=== PATIENT | female | born 1985 | race Two or more races ===

== ENCOUNTER 2021-03-19 08:03 | Emergency (ER) | payer OTHER, SELFPAY ==
[2021-03-19 08:19] VITALS: BP 133/65; PULSE 66; RESP 18; TEMP 36.3; O2SAT 100; BMI 29.2
[2021-03-19 09:06] LABS: IDNOW Serial# 08D9AD1C
--- NOTE | 2021-03-19 09:06 | ED.GENADULT ---
HPI - General Adult General Chief complaint: General Medical Stated complaint: HEADACHE SORE THROAT Time Seen by Provider: 03/19/21 09:06 Source: patient Mode of arrival: ambulatory History of Present Illness HPI narrative: 35-year-old female with no significant past medical history presenting to the ED complaining of sore throat, myalgias, headache, dry cough, fatigue since yesterday. Denies fever, chills, CP/SOB, LE edema, recent travel, sick contacts Onset (ago): day(s) Related Data Previous Rx's Medication Instructions Recorded acetaminophen 500 mg tablet 500 mg PO Q6H PRN #20 tab 03/19/21 (Tylenol Extra Strength) benzonatate 200 mg capsule 200 mg PO TID PRN #20 cap 03/19/21 fluticasone propionate 50 2 spray INTRANASAL DAILY #16 g 03/19/21 mcg/actuation nasal spray,suspension (Flonase Allergy Relief) Allergies Allergy/AdvReac Type Severity Reaction Status Date / Time No Known Allergies Allergy Verified 03/19/21 08:20 Review of Systems Review of Systems: Constitutional: No Fever, No Chills, +fatigue ENT/Mouth: No Ear Pain, + Nasal Congestion, No Sinus Pain, + sore throat, + Rhinorrhea, No Swallowing Difficulty Cardiovascular: No Chest Pain, No SOB Respiratory: + Cough, No Sputum, No Wheezing Gastrointestinal: No Nausea, No Vomiting, No Diarrhea, No Constipation, No Abdominal pain Genitourinary: No Hematuria, No Urgency, No Flank Pain Musculoskeletal: No joint pain, + Myalgias, No Joint Swelling Skin: No Skin Lesions, No rash Neuro: No Weakness, No Numbness, No Paresthesias Yes all other systems are reviewed and are negative [facility] Past Medical History Attestation statement: The following information was validated with the patient. Social History Social History Advance Directives: No Advance Directives Information Provided: Yes Physical Exam Vital Signs: Vital Signs: Last Vital Signs Temp 97.4 F 03/19/21 08:19 Pulse 66 03/19/21 08:19 Resp 18 03/19/21 08:19 BP 133/65 03/19/21 08:19 Pulse Ox 100 03/19/21 08:19 Body Mass Index 29.2 Const: General: cooperative, healthy appearing and no acute distress Orientation/consciousness: patient oriented x3 Limitations: no limitations HENMT: Head: Yes normal to inspection Ears: hearing grossly normal bilaterally, external ears normal, TM's normal bilaterally and mastoids normal General nose exam: Normal external nose present Face and sinus: Yes normal facial exam Throat: Yes posterior oropharynx normal, Yes tonsils normal, Yes uvula midline, No peritonsillar mass and No uvular edema Eyes: General: appearance normal, both eyes and all related structures EOM: EOMs intact bilaterally Neck: Neck: Yes normal visual inspection, Yes no lymphadenopathy and Yes no meningeal signs Resp: Effort & Inspection: normal respiratory effort Auscultation: clear to auscultation bilaterally, no rales, no rhonchi and no wheezes Cardio: Rate: regular rate Heart sounds: S1 normal heart sound present and S2 normal heart sound present Skin: Rashes: no rashes Wounds: no wounds Neuro: General: patient oriented x3 and no meningeal signs Gait exam (Neuro): Normal gait present Extrem: General: Yes normal to inspection, Yes no pedal edema and Yes no calf tenderness Course Course Course Narrative: COVID-19 negative, rapid strep negative Medical Decision Making [facility] Narrative Medical decision making narrative: 35-year-old female with no significant past medical history presenting to the ED complaining of sore throat, myalgias, headache, dry cough, fatigue since yesterday. On exam vital signs stable, NAD/well-appearing, lungs CTA, no pedal edema, TM/oropharynx WNL. Concern for viral syndrome/COVID-19. Low concern for pneumonia/PE/ACS Plan: Rapid strep, COVID-19 testing Medical Records Medical records reviewed: Yes I reviewed the patient's medical records. Lab Data Lab results reviewed: Yes I reviewed the patient's lab results. Labs: Lab Results 03/19/21 03/19/21 Range/Units 08:41 08:41 COVID-19 (PHIL) Negative (Negative) COVID-19 Clin Com See Note S. pyogenes GrpA VALERIE Negative (Negative) Discharge Plan Discharge Clinical Impression: Acute viral syndrome Patient Disposition: Home, Self-Care Instructions: Viral Syndrome (ED) Additional Instructions: You tested negative for COVID-19 and strep throat Tessalon Perles for cough, take as needed Flonase is for nasal decongestion stay hydrated follow-up with her doctor If symptoms persist or worsen, develop constant worsening cough, shortness breath, chest pain, or fever unresolved medications return to the ED Prescriptions: New benzonatate 200 mg capsule 200 mg PO TID PRN (Reason: cough) Qty: 20 RF: 0 acetaminophen [Tylenol Extra Strength] 500 mg tablet 500 mg PO Q6H PRN (Reason: pain or fever) Qty: 20 RF: 0 fluticasone propionate [Flonase Allergy Relief] 50 mcg/actuation spray,suspension 2 spray intranasal DAILY Qty: 16 RF: 0 Referrals: Physician,Unknown J [Primary Care Provider] - 2 days Stand Alone Forms: Work/School Release
[2021-03-19 09:07] LABS: Strep A Nucleic Acid Negative (Negative)
[2021-03-19 09:18] LABS: COVID-19 Test Negative (Negative)
== END 2021-03-19 09:34 | disposition home or self-care (01) ==
PROVIDERS: Emergency Provider Emergency Medicine Emergency Medical Services
DX: B34.9 Viral infection, unspecified (principal); Z20.822 Contact with and (suspected) exposure to COVID-19; R51.9 Headache, unspecified; J02.9 Acute pharyngitis, unspecified; M79.10 Myalgia, unspecified site
CPT/HCPCS: 36415; 87635; 87651; 99283

== ENCOUNTER 2024-03-03 20:05 | Emergency (ER) | payer MEDICAID, SELFPAY ==
--- NOTE | ~2024-03-03 | XR_ITS ---
EXAMINATION: XR CHEST CLINICAL INFORMATION: Cough. COMPARISON: None available. TECHNIQUE: Frontal view of the chest was obtained. FINDINGS: Right lung volume loss with linear scarring versus atelectasis within the right upper lobe. No additional airspace consolidation. No pleural effusion or pneumothorax. Unremarkable cardiomediastinal silhouette. XR/XR chest 1V IMPRESSION: Right lung volume loss with linear scarring versus atelectasis within the right upper lobe. Electronically signed by: Terry Nava MD 03/03/2024 09:50 PM EDT
[2024-03-03 20:29] VITALS: BP 120/44; PULSE 88; RESP 18; TEMP 36.8; O2SAT 100; BMI 35.9
--- NOTE | 2024-03-03 20:29 | ED.GENADULT ---
HPI - General Adult General Chief complaint: Upper Respiratory Symptoms Stated complaint: dx pneumonia last week/today is worse Time Seen by Provider: 03/03/24 23:38 Source: patient Limitations: no limitations History of Present Illness ED Provider: Domi Joaquin PA-C HPI narrative: 38-year-old otherwise healthy female presents with cough cold symptoms x1 week. Patient states she was seen at [facility] last week, diagnosed with pneumonia, placed on antibiotics. Patient states her symptoms have persisted, she now has a dry, bronchospasm type cough. Denies wheezing, denies history of asthma, no tobacco use. Denies persisting fevers. Related Data Previous Rx's ?Medication ?Instructions ?Recorded acetaminophen 500 mg tablet 500 mg PO Q6H PRN pain or fever 03/19/21 (Tylenol Extra Strength) #20 tabs benzonatate 200 mg capsule 200 mg PO TID PRN cough #20 caps 03/19/21 fluticasone propionate 50 2 spray intranasal DAILY #16 grams 03/19/21 mcg/actuation nasal spray,suspension (Flonase Allergy Relief) benzonatate 200 mg capsule 200 mg PO TID PRN cough #10 caps 03/04/24 prednisone 20 mg tablet 40 mg (2 x 20 mg) PO DAILY #10 tabs 03/04/24 Allergies Allergy/AdvReac Type Severity Reaction Status Date / Time No Known Allergies Allergy Verified 03/03/24 20:32 Review of Systems Review of Systems: Yes all other systems are reviewed and are negative Constitutional: Constitutional: Denies fatigue and Denies fever(s) Cardiovascular: Cardiovascular: Denies chest pain and Denies dyspnea Respiratory: Respiratory: Reports cough, Denies dyspnea and Denies wheezing Gastrointestinal: Gastrointestinal: Denies diarrhea, Denies nausea and Denies vomiting Endocrine: Endocrine: Denies fatigue Allergic/Immunologic: Allergic/Immunologic: Denies wheezing PMF Past Medical History Attestation statement: The following information was validated with the patient. Social History Social History Advance Directives: No Advance Directives Information Provided: No Do you have a plan to hurt others: No Plan Physical Exam ED Vital Signs: Vital Signs - 24 hr 03/03/24 20:29 03/04/24 00:03 Temperature 98.2 F 98.4 F Pulse Rate 88 67 Respiratory Rate 18 18 Blood Pressure 120/44 L 112/57 L Pulse Oximetry 100 99 Oxygen Delivery Method Room Air Room Air BMI result Body Mass Index 35.9 Const Other: Alert, well in appearance Orientation/consciousness: patient oriented x3 Resp Other: Nonlabored respirations, active bronchospasm cough, no wheezing Cardio Other: Normal peripheral perfusion Skin Other: Warm dry no rash Neuro General: patient oriented x3, no focal motor deficits and CN's II-XI intact bilaterally Psych Other: Calm cooperative Course Course Course Narrative: This is an RME: Additional HPI, ROS, PE not included below will be deferred to primary provider. RME assessment and note performed by: Luana Glynn PA-C This is a [id number], with a hx of benign kidney tumor removed 4 years ago, who presents to the ER with complaints of worsening symptoms. Was seen at [facility] last week and was diagnosed with pneumonia and was prescribed an antibiotic which she completed but states that she is feeling worse as she has had persistent cough and SOB. Plan: Labs, EKG, CXR Medical Decision Making Medical Decision Making MDM Narrative: 38-year-old otherwise healthy female presents with cough cold symptoms x1 week. Patient states she was seen at [facility] last week, diagnosed with pneumonia, placed on antibiotics. Patient states her symptoms have persisted, she now has a dry, bronchospasm type cough. Denies wheezing, denies history of asthma, no tobacco use. Denies persisting fevers. No relevant chronic issues History: Per patient I have considered the following differential diagnoses: Airway reactivity, new viral syndrome, persistent pneumonia, bronchitis Plan: Screening labs including viral panel and chest x-ray were repeated from triage. Pneumonias resolved, patient has residual bronchospasm cough. She has an inhaler at home, we will place on a steroid burst. We will send with Loreto Rosenberg as well. Labs: No leukocytosis, not anemic, no electrolyte abnormality, viral panel negative Chest x-ray: XR/XR chest 1V IMPRESSION: Right lung volume loss with linear scarring versus atelectasis within the right upper lobe. Electronically signed by: Terry Nava MD 03/03/2024 09:50 PM EDT RP Lab Data 03/03/24 20:46 03/03/24 20:46 Labs: Lab Results 03/03/24 Range/Units 20:46 WBC 11.3 H (4.8-10.8) X10*3/uL RBC 3.85 L (4.20-5.50) X10*6/uL Hgb 9.1 L (12.0-16.0) g/dl Hct 29.2 L (37.0-47.0) % MCV 75.8 L (80.0-98.0) fL MCH 23.6 L (27.0-33.0) pg MCHC 31.2 (31.0-35.0) g/dl RDW 17.2 H (11.0-16.0) % Plt Count 554 H (160-400) X10*3/uL MPV 9.5 (9.4-12.3) fL Immature Gran % (Auto) 0.4 (0.0-0.4) % Neut % (Auto) 84.6 H (45-73) % Lymph % (Auto) 11.3 L (20-40) % [place] % (Auto) 2.2 (2-11) % Eos % (Auto) 1.3 (0-4) % Baso % (Auto) 0.2 (0-2) % Lymph # (Auto) 1.3 (1.2-4.9) X10*3/uL [place] # (Auto) 0.3 (0.1-1.2) X10*3/uL Eos # (Auto) 0.2 (0.0-0.4) X10*3/uL Baso # (Auto) 0.0 (0.0-0.2) X10*3/uL Abs Immat Gran (auto) 0.04 H (0.00-0.03) X10*3/uL Absolute Neuts (auto) 9.6 H (2.0-8.3) x10*3/uL Absolute Nucleated RBC 0.000 (0.0-0.012) X10*3/uL Nucleated RBC % (auto) 0.0 (0.0-0.2) /100WBC PT 12.3 (10.9-12.4) SEC INR 1.1 (0.9-1.1) Sodium 141 (135-145) mmol/L Potassium 4.4 (3.3-5.1) mmol/L Chloride 108 (96-108) mmol/L Carbon Dioxide 20 L (22-29) mmol/L Anion Gap 17 (12-20) BUN 13 (9-16) mg/dL Creatinine 0.90 (0.5-1.4) mg/dL Estim Creat Clear Calc 82.7 Estimated GFR > 60 Random Glucose 120 H (60-115) mg/dL Calcium 9.2 (8.4-10.2) mg/dL Magnesium 2.0 (1.6-2.6) mg/dL Total Bilirubin 0.1 (0.0-1.0) mg/dL Direct Bilirubin < 0.2 (0.0-0.5) mg/dL AST 29 (5-31) U/L ALT 48 H (0-31) U/L Alkaline Phosphatase 77 (39-117) U/L Troponin I High Sens < 2.7 (<3.5-17.0) ng/L Total Protein 7.9 (6.5-8.0) g/dL Albumin 4.1 (3.5-5.0) g/dL Influenza Type A (PCR) NEGATIVE (Negative) Influenza Type B (PCR) NEGATIVE (Negative) RSV RNA Qual (PCR) NEGATIVE (Negative) SARS-CoV-2 RNA (RT-PCR) NEGATIVE (Negative) Discharge Plan Discharge Clinical Impression: Acute bronchospasm Patient Disposition: Home, Self-Care Instructions: Bronchospasm (ED) Additional Instructions: Your airway is reactivre from your recent illness. See home care instructions. You can continue to use the albuterol inhaler for your bronchospasm type cough. Use the steroid as directed, take in the morning. Use the benzonatate as needed for cough as well. Follow up with your primary care provider. Prescriptions: New benzonatate 200 mg capsule 200 mg PO TID PRN (Reason: cough) Qty: 10 0RF prednisone 20 mg tablet 40 mg PO DAILY Qty: 10 0RF Rx Instructions: take this medication in the morning No Action benzonatate 200 mg capsule 200 mg PO TID PRN (Reason: cough) Qty: 20 0RF acetaminophen [Tylenol Extra Strength] 500 mg tablet 500 mg PO Q6H PRN (Reason: pain or fever) Qty: 20 0RF fluticasone propionate [Flonase Allergy Relief] 50 mcg/actuation spray,suspension 2 spray intranasal DAILY Qty: 16 0RF Rx Instructions: administer into each nostril Stand Alone Forms: Work/School Release Print Language: Gambian
--- NOTE | 2024-03-03 20:33 | ECG_ITS ---
Test Reason : DYSPNEA Blood Pressure : / mmHG Vent. Rate : 080 BPM Atrial Rate : 080 BPM P-R Int : 152 ms QRS Dur : 082 ms QT Int : 378 ms P-R-T Axes : 045 007 024 degrees QTc Int : 435 ms Normal sinus rhythm Normal ECG No previous ECGs available Referred By: Luana Glynn Electronically Signed By:COLUMBA GARCIA
[2024-03-03 20:51] LABS: MANUAL DIFF FLAG NO
[2024-03-03 20:57] LABS: Basophils Percent Auto 0.2 % (0-2); Eosinophils Absolute Auto 0.2 X10*3/uL (0.0-0.4); Eosinophils Percent Auto 1.3 % (0-4); Hematocrit 29.2 % (37.0-47.0); Hemoglobin 9.1 g/dl (12.0-16.0); Imm Gran Abs Auto 0.04 X10*3/uL (0.00-0.03); Imm Gran Pct Auto 0.4 % (0.0-0.4); Lymphocytes Absolute Auto 1.3 X10*3/uL (1.2-4.9); Lymphocytes Percent Auto 11.3 % (20-40); Mean Corpuscular HGB Conc 31.2 g/dl (31.0-35.0); Mean Corpuscular Hemoglobin 23.6 pg (27.0-33.0); Mean Corpuscular Volume 75.8 fL (80.0-98.0); Mean Platelet Volume 9.5 fL (9.4-12.3); Monocytes Absolute Auto 0.3 X10*3/uL (0.1-1.2); Monocytes Percent Auto 2.2 % (2-11); Neutrophils Absolute Auto 9.6 x10*3/uL (2.0-8.3); Neutrophils Percent Auto 84.6 % (45-73); Platelet Count 554 X10*3/uL (160-400); Red Blood Count 3.85 X10*6/uL (4.20-5.50); Red Cell Distribution Width 17.2 % (11.0-16.0); White Blood Count 11.3 X10*3/uL (4.8-10.8)
[2024-03-03 21:06] LABS: INTERNATIONAL NORM RATIO 1.1 (0.9-1.1); Prothrombin Time 12.3 SEC (10.9-12.4)
[2024-03-03 21:11] LABS: Alanine Aminotransferase 48 U/L (0-31); Albumin Level 4.1 g/dL (3.5-5.0); Alkaline Phosphatase 77 U/L (39-117); Anion Gap 17 (12-20); Aspartate Amino Transferase 29 U/L (5-31); Bilirubin Direct < 0.2 mg/dL (0.0-0.5); Bilirubin Total 0.1 mg/dL (0.0-1.0); Blood Urea Nitrogen 13 mg/dL (9-16); Calcium 9.2 mg/dL (8.4-10.2); Carbon Dioxide 20 mmol/L (22-29); Chloride 108 mmol/L (96-108); Creatinine Clr Calc Pharmacy 82.7; Estimated Glomerular Filt Rate > 60; Glucose Random 120 mg/dL (60-115); Potassium 4.4 mmol/L (3.3-5.1); Sodium 141 mmol/L (135-145); Total Protein 7.9 g/dL (6.5-8.0)
[2024-03-03 21:24] LABS: Troponin-I High Sensitivity < 2.7 ng/L (<3.5-17.0)
[2024-03-03 21:36] LABS: Influenza A PCR NEGATIVE (Negative); Influenza B PCR NEGATIVE (Negative); Resp Syncy Virus RNA Qual PCR NEGATIVE (Negative); SARS COV2 PCR INHOUSE NEGATIVE (Negative)
[2024-03-04 00:03] VITALS: BP 112/57; PULSE 67; RESP 18; TEMP 36.9; O2SAT 99
--- NOTE | 2024-03-04 00:13 | MHC.EDTECH ---
Assumed care of patient at this time,rounded and introduced self to patient,vitals taken,visitor at bedside,patient is on cellphone,appears to be comfortable,call rachel in reach
[2024-03-04 01:30] VITALS: BP 116/75; PULSE 73; RESP 18; TEMP 36.9; O2SAT 98
[2024-03-04 01:53] VITALS: BP 116/75; PULSE 73; RESP 18; TEMP 36.9; O2SAT 98
--- NOTE | 2024-03-04 01:53 | MHC.EDTECH ---
Vitals taken,pt is being discharged at this time
[2024-03-04] MEDS: Benzonatate 100 MG CAPSULE 200 MG PO (01:55)
== END 2024-03-04 01:31 | disposition home or self-care (01) ==
PROVIDERS: Physician Assistant Medical; Emergency Provider Emergency Medicine
DX: J98.01 Acute bronchospasm (principal); Z03.818 Encounter for observation for suspected exposure to other biological agents ruled out; R05.9 Cough, unspecified
CPT/HCPCS: 0241U; 71045; 80048; 80076; 83735; 84484; 85025; 85610; 93005; 99283; 99284

== ENCOUNTER → 2024-03-03 20:33 | Outpatient (BNV) | payer MEDICAID, SELFPAY | PROVIDERS: Emergency Provider Emergency Medicine; Visit Provider Internal Medicine | DX: R06.00 Dyspnea, unspecified (principal) | CPT/HCPCS: 93010 ==